=== PATIENT | female | born 1965 | race Caucasian/White ===

== ENCOUNTER → 2017-04-20 | Outpatient (CLI) | payer OTHER ==
[~2017-04-20] MED LIST: ALBUTEROL0.09 MG/A2 INH; CLARITIN10 MG PO; CLINDAMYCIN150 MG PO; FLONASE ALLERG9.9 ML NAS; IBUPROFEN600 MG PO; MEDROL DOSEPAK4 MG PO; MOTRIN800 MG PO; PREDNICOT10 MG PO; PREDNISONE10 MG PO; PROZAC40 MG PO; ROBITUSSIN AC 110 ML PO; VENTOLIN H0.09 MG/AC INH; VIBRAMYCIN100 MG PO
[2017-04-21 08:12] LABS: RHEUMATOID ARTHRITIS FACTOR <10.0 IU/mL (0.0-13.9)
== END | disposition home or self-care (01) ==
LOC: LAB 07:48
PROVIDERS: Internal Medicine
DX: Z13.21 Encounter for screening for nutritional disorder (principal); Z13.220 Encounter for screening for lipoid disorders; Z13.1 Encounter for screening for diabetes mellitus; F33.0 Major depressive disorder, recurrent, mild; R10.9 Unspecified abdominal pain; M85.80 Other specified disorders of bone density and structure, unspecified site; K76.0 Fatty (change of) liver, not elsewhere classified; R21 Rash and other nonspecific skin eruption; R73.9 Hyperglycemia, unspecified

== ENCOUNTER 2017-04-30 12:14 | Emergency (ER) | payer OTHER ==
[~2017-04-30] VITALS: Ht 170.1 cm; Wt 72.6 kg
[2017-04-30 13:01] LABS: BASO % 0.3 % (0.0-1.0); EOS # 0.1 10*3/uL (0.0-0.4); EOS % 0.4 % (1.0-4.0); HEMOGLOBIN 14.2 g/dl (12.0-16.0); IG # 0.1 10*3/uL (0.0-0.1); LYMPH # 1.1 10*3/uL (1.3-4.4); MEAN CELL VOLUME 94.7 fl (81.0-99.0); MEAN CORPUSCULAR HGB 31.3 pg (27.0-31.0); MEAN PLATELET VOLUME 9.7 fl (9.6-12.3); MONO # 0.7 10*3/uL (0.1-1.0); MONO % 5.8 % (3.0-9.0); NEUT # 10.4 10*3/uL (2.3-7.9); PLATELET COUNT AUTOMATED 273 10*3/uL (130-400); RED BLOOD COUNT 4.54 10*6/uL (4.10-5.10); RED CELL DISTRI WIDTH 13.3 % (0-14.5); WHITE BLOOD COUNT 12.4 10*3/uL (4.8-10.8)
[2017-04-30 13:14] LABS: ALBUMIN 3.5 gm/dl (3.1-4.5); ALKALINE PHOSPHATASE 84 U/L (45-117); BILIRUBIN, TOTAL 0.7 mg/dl (0.2-1.0); BUN 5 mg/dl (7-24); C-REACTIVE PROTEIN 2.07 MG/DL (0-0.3); CARBON DIOXIDE 28 mmol/L (21-32); CHLORIDE 105 mmol/L (98-107); CPK 38 U/L (26-192); EST GLOM FILT AFRICAN AMERICAN > 60 ml/min; GLUCOSE 100 mg/dL (65-99); POTASSIUM 4.1 mmol/L (3.5-5.1); SGOT/AST 22 IU/L (3-35); SGPT/ALT 56 U/L (12-78); SODIUM 141 mmol/L (136-145); TOTAL PROTEIN 6.8 gm/dL (6.4-8.2)
[2017-04-30 13:15] LABS: CKMB < 0.5 ng/ml (0.5-3.6); TROPONIN I < 0.015 ng/ml (<0.045)
[2017-04-30 13:19] LABS: PROTHROMBIN TIME 10.7 SECONDS (9.0-12.4)
[2017-04-30 14:30] LABS: BILIRUBIN NEGATIVE (NEGATIVE); BLOOD TRACE-INTACT (NEGATIVE); CLARITY CLEAR (CLEAR); COLOR YELLOW (YELLOW); GLUCOSE NEGATIVE (NEGATIVE); KETONE NEGATIVE (NEGATIVE); LEUKO ESTERASE NEGATIVE (NEGATIVE); NITRITE NEGATIVE (NEGATIVE); PROTEIN NEGATIVE (NEGATIVE); UROBILINOGEN 0.2 E.U./dl (0.2-1.0)
[2017-04-30 14:38] LABS: URINE REFLEX COMMENT NO (NO); WBC 0-2 wbc/hpf (0-5)
[2017-04-30 14:39] LABS: RBC 0-2 rbc/hpf (0-2)
[2017-04-30] MEDS ORDERED: ZOFRAN ODT4 MG SL (15:07)
[2017-04-30] MEDS ORDERED: PROVENTIL0.09 MG/A1 INH (15:07)
[2017-04-30] MEDS ORDERED: PREDNISONE50 MG PO (15:07)
== END 2017-04-30 15:19 | disposition home or self-care (01) ==
LOC: ED 12:14
PROVIDERS: Emergency Medicine
DX: K52.9 Noninfective gastroenteritis and colitis, unspecified (principal); J06.9 Acute upper respiratory infection, unspecified; F17.200 Nicotine dependence, unspecified, uncomplicated; Z88.8 Allergy status to other drugs, medicaments and biological substances; Z91.040 Latex allergy status; Z79.899 Other long term (current) drug therapy

== ENCOUNTER 2017-06-29 10:18 | Emergency (ER) | payer OTHER ==
[~2017-06-29] VITALS: Ht 170.1 cm; Wt 68.9 kg
[~2017-06-29 10:18] MED LIST changes: +PREDNISONE50 MG PO; +PROVENTIL0.09 MG/A1 INH; +ZOFRAN ODT4 MG SL
[2017-06-29] MEDS ORDERED: METFORMIN500 MG PO (11:19)
[2017-06-29] MEDS ORDERED: NAPROSYN500 MG PO (12:35)
== END 2017-06-29 12:37 | disposition home or self-care (01) ==
LOC: ED 10:18
DX: M25.562 Pain in left knee (principal); R60.0 Localized edema; F17.200 Nicotine dependence, unspecified, uncomplicated; J45.909 Unspecified asthma, uncomplicated; Z79.899 Other long term (current) drug therapy; Z91.040 Latex allergy status; Z88.8 Allergy status to other drugs, medicaments and biological substances

== ENCOUNTER → 2017-08-26 | Outpatient (CLI) | payer OTHER ==
[~2017-08-26] MED LIST changes: +METFORMIN500 MG PO; +NAPROSYN500 MG PO
== END | disposition home or self-care (01) ==
LOC: MRI 12:52
DX: S83.232D Complex tear of medial meniscus, current injury, left knee, subsequent encounter (principal); M71.22 Synovial cyst of popliteal space [Baker], left knee; M25.862 Other specified joint disorders, left knee; X58.XXXD Exposure to other specified factors, subsequent encounter

== ENCOUNTER 2018-01-11 10:12 | Emergency (ER) | payer OTHER ==
[~2018-01-11] VITALS: Wt 72.6 kg
[2018-01-11] MEDS ORDERED: PREDNISONE10 MG PO (10:36)
[2018-01-11] MEDS ORDERED: CLARITIN10 MG PO (10:36)
[2018-01-11] MEDS ORDERED: ROBITUSSIN DM 105 ML PO (10:36)
[2018-01-11] MEDS ORDERED: FLONASE ALLERG9.9 ML NAS (10:36)
[2018-01-11] MEDS ORDERED: PROAIR HFA8.5 GM INH (10:39)
== END 2018-01-11 11:09 | disposition home or self-care (01) ==
LOC: ED 10:12
DX: J20.9 Acute bronchitis, unspecified (principal); F17.200 Nicotine dependence, unspecified, uncomplicated; Z79.899 Other long term (current) drug therapy; Z91.040 Latex allergy status; Z88.8 Allergy status to other drugs, medicaments and biological substances

== ENCOUNTER → 2018-06-03 | Outpatient (CLI) | payer OTHER ==
[~2018-06-03] MED LIST changes: +AUGMENTIN 500500 M1 PO; +BUSPAR5 MG PO; +LEVAQUIN750 M1 PO; +MIRTAZAPINE7.5 MG PO; +PROAIR HFA8.5 GM INH; +ROBITUSSIN DM 105 ML PO; +TAMIFLU 75MG CA75 MG PO; +WELLBUTRIN SR200 MG PO; +ZOFRAN4 MG PO
== END | disposition home or self-care (01) ==
LOC: RAD 10:35
DX: M25.441 Effusion, right hand (principal); R06.02 Shortness of breath; F17.200 Nicotine dependence, unspecified, uncomplicated

== ENCOUNTER 2018-09-02 16:20 | Inpatient (IN) | payer OTHER ==
[~2018-09-02] VITALS: Ht 170.1 cm; Wt 74.6 kg
--- NOTE | ~2018-09-02 | PR ---
[place], [place] PROGRESS NOTE NAME: NICOLÁS GUTIÉRREZ UNIT #: [id number] ROOM: 517 DOCTOR: NUSRAT THORNE MD BIRTHDATE: [birth year] DOS: 09/05/2018 SUBJECTIVE: The patient complaining of acute gouty arthritis starting in her toe just this morning. Otherwise, her lower extremity pains and back pains are much better. OBJECTIVE: VITAL SIGNS: Blood pressure 116/63, heart rate 88 beats per minute, breathing 18 times per minute, temperature 98.4 degrees Fahrenheit. GENERAL APPEARANCE: The patient is alert and oriented x 3, in no visible distress. Has generalized weakness. HEENT AND NECK: Exam within normal limits. CARDIOVASCULAR SYSTEM: Heart rate is regular in rate and rhythm. S1 and S2 normally audible. LUNGS: Clear to auscultation. ABDOMEN: Soft, nontender. No obvious organomegaly. Bowel sounds are present. EXTREMITIES: Redness and swelling in the great toe, at the base of the right great toe. IMPRESSION: The patient has acute DICTATION ENDS HERE NUSRAT THORNE MD CM:PNTRANS [id number] NUSRAT THORNE MD 09/05/181913 interface
--- NOTE | ~2018-09-02 | WRIGHTHP ---
[place], [place] PATIENT HISTORY AND PHYSICAL EXAM NAME: NICOLÁS GUTIÉRREZ [facility] #: [id number] UNIT #: [id number] ROOM: [facility] DOCTOR: ROLANDO WEST MD BIRTHDATE: [birth year] DOS: HISTORY OF PRESENT ILLNESS: The patient is 52 years old. The patient is very well known to us, comes in with complaints of cough and shortness of breath. The patient states that on Thursday she woke up with sore throat and it continued to get worse with Thursday and Thursday developing some cough. By Thursday, she was starting a short of breath, so finally she decided to come to the Emergency Room on . She did have a low-grade fever. She does not have any abdominal pain, nausea, emesis, but started having some diarrhea this morning. PAST MEDICAL HISTORY: Significant for: 1. Moderate cigarette smoker. 2. Major depression, moderate. 3. Generalized anxiety disorder. MEDICATIONS: Medications that she is currently on are bupropion 150 twice a day, BuSpar 5 b.i.d., Remeron 7.5 at bedtime. SOCIAL HISTORY: Smokes about less than a half a pack of cigarettes a day since the age of 16. Denies using any alcohol. PHYSICAL EXAMINATION: GENERAL: She is awake and alert and oriented. VITAL SIGNS: Graphic trend shows a pressure of 99/58, pulse of 80, respirations 20, temperature 98.4. LUNGS: Diminished breath sounds. A few scattered rales heard at the bases. HEART: Regular. ABDOMEN: Obese, soft, nontender. EXTREMITIES: Without any edema. IMAGING: The patient tested for flu positive B. Chest x-ray showed bilateral pneumonia. LABORATORY DATA: WBC count is 8.8, hemoglobin 13.4, hematocrit 40.4. Lactic acid 0.9. Comprehensive glucose 133, BUN 7, creatinine 0.77, sodium 137, potassium 3.4. ASSESSMENT AND PLAN: This is a 52-year-old patient who presents with cough, shortness of breath. The patient has: 1. Flu positive, will be placed on Tamiflu. 2. Bilateral pneumonia. CT of the chest will be ordered to further determine the extent of infection. The patient is placed on IV antibiotics, breathing treatments. Sputum cultures will be sent for Legionella and mycoplasma and sputum cultures also ordered. 3. Chronic obstructive pulmonary disease with moderate cigarette smoker. Does not seem to have an acute exacerbation, so not necessary to give her any steroids right now. Antibiotics to be continued. 4. Diarrhea. Check with [facility]. diff titers. [place], [place] PATIENT HISTORY AND PHYSICAL EXAM NAME: NICOLÁS GUTIÉRREZ UNIT #: [id number] ROOM: [facility] DOCTOR: ROLANDO WEST MD BIRTHDATE: [birth year] ROLANDO WEST MD CM:HISPHYS:PATIENT HISTORY AND PHYSICAL EXAMINATION 3 0 ROLANDO WEST MD 09/03/18920 interface
--- NOTE | ~2018-09-02 | PR ---
[place], [place] PROGRESS NOTE NAME: NICOLÁS GUTIÉRREZ UNIT #: [id number] ROOM: 517 DOCTOR: NUSRAT THORNE MD BIRTHDATE: [birth year] DOS: SUBJECTIVE: The patient says she is starting to feel better and breathe better with treatment. OBJECTIVE: VITAL SIGNS: Blood pressure 110/67, heart rate 85 beats per minute, breathing 18 times per minute, temperature 99 degrees Fahrenheit. GENERAL APPEARANCE: The patient is alert and oriented x 3, in no visible distress. HEENT AND NECK: Exam within normal limits. CARDIOVASCULAR SYSTEM: Heart rate is regular in rate and rhythm. S1 and S2 normally audible. LUNGS: Clear to auscultation. ABDOMEN: Soft, nontender. No obvious organomegaly. Bowel sounds are present. EXTREMITIES: Without significant cyanosis or edema. IMPRESSION AND PLAN: 1. Patient positive for influenza B, being treated with Tamiflu. 2. Bilateral pneumonia. Sputum cultures have been sent for legionella and mycoplasma. Sputum cultures are pending. CT of the chest showing patchy consolidation in the right upper lobe and right middle lobe, compatible with pneumonia. I will consult Dr. Corona to follow. 3. The patient had diarrhea, C. diff toxin negative so far. 4. Acute exacerbation of chronic obstructive pulmonary disease with nicotine smoke dependence, treated with bronchodilators. 5. Generalized anxiety disorder, treated with BuSpar and bupropion. 6. Major depression, recurrent, mild; treated with bupropion. The patient also takes Remeron. NUSRAT THORNE MD CM:PNTRANS [id number] NUSRAT THORNE MD 09/05/18 0458 interface
--- NOTE | ~2018-09-02 | PR ---
[place], [place] PROGRESS NOTE NAME: NICOLÁS GUTIÉRREZ UNIT #: [id number] ROOM: 517 DOCTOR: ROLANDO WEST MD BIRTHDATE: [birth year] DOS: SUBJECTIVE: The patient is emotional about some family situation that has arose. The patient is not having any complaints. She is feeling much better. OBJECTIVE: VITAL SIGNS: Blood pressure is 107/57, pulse of 70, respirations 20, temperature 98.0. LUNGS: Clear. HEART: Regular. ABDOMEN: Obese, soft, nontender. EXTREMITIES: Without any edema. ASSESSMENT AND PLAN: Pneumonia after influenza B infection. Clinically, the patient is much better. Chest x-ray is lagging behind. Consultation with Dr. Corona was obtained. I did speak to him. Chest x-ray and CAT scans reviewed. I believe the patient is stable and he has agreed that the patient can be discharged home, so plan to discharge her home on p.o. antibiotics and Tamiflu. ROLANDO WEST MD CM:PNTRANS 0833 140 ROLANDO WEST MD 09/07/18 140 interface
--- NOTE | ~2018-09-02 | PR ---
[place], [place] PROGRESS NOTE NAME: NICOLÁS GUTIÉRREZ UNIT #: [id number] ROOM: 517 DOCTOR: ROLANDO WEST MD BIRTHDATE: [birth year] DOS: 09/06/2018 SUBJECTIVE: The patient is doing much better. She still has a very moist-sounding cough and is spitting up a lot of greenish sputum. OBJECTIVE: VITAL SIGNS: Graphic trend shows a pressure of 118/60, pulse of 82, respirations 16, temperature 98.2. LUNGS: Diminished breath sounds, few rales heard at the right upper lobe area. HEART: Regular. ABDOMEN: Obese, soft. EXTREMITIES: Without any edema. ASSESSMENT AND PLAN: 1. Influenza B positive. The patient is on Tamiflu. 2. Right upper lobe, right middle lobe pneumonia, on IV antibiotics. Blood cultures and sputum cultures so far have come back showing no growth and moderate yeast. Clostridium difficile titers have been negative. 3. Moderate cigarette smoker with chronic obstructive pulmonary disease. Continue breathing treatments. We will do a chest x-ray today to see whether the pneumonia is clearing and then we will decide on discharge planning. ROLANDO WEST MD CM:PNTRANS [id number] ROLANDO WEST MD 09/06/18 1719 interface
--- NOTE | ~2018-09-02 | DS ---
[place], [place] DISCHARGE SUMMARY NAME: NICOLÁS GUTIÉRREZ UNIT #: [id number] ROOM: 517 DOCTOR: ROLANDO WEST MD BIRTHDATE: [birth year] DOS: 09/07/2018 The patient was admitted to the hospital on 09/02/2018 and discharged on 09/07/2018. DIAGNOSES: 1. Right middle and upper lobe pneumonia. 2. Influenza B infection. 3. Moderate cigarette smoker. 4. Chronic obstructive pulmonary disease. 5. Major depression, moderate. 6. Generalized anxiety disorder. MEDICATIONS: Bupropion 150 b.i.d., BuSpar 5 b.i.d., Remeron 7.5 mg at bedtime, Levaquin 750 daily for 7 days and Tamiflu 75 mg twice daily for another 3 more days. HOSPITAL COURSE: The patient is very well known to us, comes in with complaints of cough, shortness of breath and a low grade fever initially before she came. After she arrived, her fevers have resolved and her white cell count has remained normal with a normal lactic acid level. Chest x-ray showed pneumonia and influenza B was positive. She had a CT of the chest, which was done, which showed consolidation of the right middle and lower part of the right lower lobe. Multiple antibiotics were started and the patient has definitely improved for the last few days, diarrhea was noted, so Lomotil was given. Clostridium difficile titers have been negative. Cough and shortness of breath have subsided. She still has a slightly productive cough. Dr. Corona was consulted. The patient is clinically improved. Dr. Corona feels the patient can be discharged home today and follow up as an outpatient. Repeat chest x-ray will be ordered in a few days. Sputum culture, C. diff titers, Legionella, mycoplasma titers have all come back negative. [place], [place] DISCHARGE SUMMARY NAME: NICOLÁS GUTIÉRREZ UNIT #: [id number] ROOM: 517 DOCTOR: ROLANDO WEST MD BIRTHDATE: [birth year] ROLANDO WEST MD CM:DISCHARG [id number] ROLANDO WEST MD 09/07/18 1041 interface
--- NOTE | ~2018-09-02 | CON ---
[place], [place] REPORT OF CONSULTATION NAME: NICOLÁS GUTIÉRREZ [facility] #: [id number] UNIT #: [id number] ROOM: 517 DOCTOR: CARLOS QUINONES MDPANKAJ BIRTHDATE: [birth year] DOS: 09/07/2018 PULMONARY CONSULTATION, EVALUATION, AND MANAGEMENT REASON FOR CONSULTATION: For assessment of current abnormal chest x-ray with pneumonia and other abnormal respiratory symptoms by Dr. Alix Tolliver. HISTORY OF PRESENT ILLNESS: This is a 52-year-old white female patient who has been noted acutely ill a few days at home. The patient started with symptoms of having sore throat, initially dryness of throat. Later on with the headache reported. She was also noted a fever, which got worse up to 101 degrees and started wheezing. She was noted some nasal congestion and blockage as well. Shortness breath were reported. The patient has been admitted to the hospital under the care of Dr. Alix Tolliver on 09/02/2018 as the patient was assessed in the Emergency Room. Influenza A and B, nasal washing antigen was done in the Emergency Room, noted positive influenza B infection. The patient denies any symptoms of fever or chills at the present time. Shortness of breath, cough, and headache are seem to be improving since hospitalization. The patient denies any symptoms of hemoptysis. Denies any ongoing acute chest pain. REVIEW OF SYSTEMS: CONSTITUTIONAL: Fatigue and tiredness reported without any symptoms of fever or chills. EYES: Denies any burning, redness, or tenderness. EARS, NOSE, THROAT SYMPTOMS: Denies sore throat, hoarseness, otalgia at the present time. The symptoms from admission has been resolved completely. CARDIOVASCULAR: Denies angina pain, edema, pain of the lower extremity. GASTROINTESTINAL: No dysphagia, nausea, vomiting, diarrhea, abnormal weight loss, hematemesis, or melena. SKIN: Denies abnormal lesions or rashes. GENITOURINARY: No dysuria, suprapubic pain, hematuria, or flank pain. SKIN: Denies abnormal lesions or rashes. CENTRAL NERVOUS SYSTEM: Denies any headache, diplopia, or syncopal episodes. The headache noted on admission was resolved completely. PAST MEDICAL HISTORY: Known with history of: 1. . 2. Chronic nicotine dependence. 3. History of major depression. 4. Anxiety disorder. SOCIAL HISTORY: The patient lives at home. She is and has 2 children. Smoking was noted about 3/4 pack of cigarettes per day actively from the age of [age] years old. There was no history of alcohol use or illicit drug use reported. FAMILY HISTORY: Noted as noncontributory. PAST SURGICAL HISTORY: None major surgery. HOME MEDICATIONS: Listed as use of BuSpar, Wellbutrin, and Remeron. [place], [place] REPORT OF CONSULTATION NAME: NICOLÁS GUTIÉRREZ UNIT #: [id number] ROOM: [facility] DOCTOR: CARLOS QUINONES MD,PANKAJ BIRTHDATE: [birth year] DRUG ALLERGY HISTORY: The patient was noted as ALLERGY TO PEPCID. PHYSICAL EXAMINATION: GENERAL: This is a 52-year-old white female patient, currently noted fully awake and alert without acute distress this morning of assessment. VITAL SIGNS: Height of 5 feet 7 inches, weight of 164 pounds, BMI 25.7. Normal temperature noted in the last 24 with T-max is noted on 09/05/2018 as 97.8 degrees Fahrenheit. Otherwise, the patient noted essentially afebrile. The respiratory rate range between 14-16. The heart rate 79-78, blood pressure 107/57. Pulse oxygen saturation recorded at rest on room air is 94%-96% saturation currently 100% at rest on room air. HEENT: Head was atraumatic. Eyes nonicterus. Akeq-ut-lhifpfle obesity. NECK: Supple. Moderate reduction of posterior pharyngeal space, high tongue base, and crowding of soft tissue structures. CHEST: Auscultation of chest was noted [id number] decreased breath sounds with expiratory wheezing, which are noted, this is mild. ABDOMEN: Noted soft, nontender. Bowel sounds present. EXTREMITIES: Without acute edema. MUSCULOSKELETAL: Without any acute deformities. VISIBLE SKIN: No lesions or rashes. CENTRAL NERVOUS SYSTEM: The patient's cranial nerves 2-12 intact. LABORATORY DATA: Reviewed Influenza B and nasal washing antigen on admission noted positive influenza B, nasal washing antigen. CBC on 09/02/2018 was noted as normal CBC. Lactic acid noted normal on 09/02/2018. CMP on admission, glucose 133, BUN and creatinine was normal. LFTs were normal. Potassium mildly decreased 3.4 on admission. CBC repeated on , essentially remains normal. BMP patient noted normal potassium which were repeated. The glucose was recorded as 160. Blood culture on admission 09/02/2018, reported no bacterial growth. Stool for C. diff toxin negative. Sputum culture noted moderate growth of yeast on 09/04/2018. The CBC that was done this morning reviewed as normal. WBC count and platelet count. The BMP this morning, normal BUN, creatinine and electrolytes noted completely normal. Review of the radiology data for the patient personally performed, the chest x-ray that was done on 09/02/2018 in the Emergency Room to be chest x-ray was noted with area of right middle lobe infiltration and atelectasis was noted. Remaining lungs were noted clear. CT scan of the chest, which was done without contrast on 09/03/2018 was reviewed, shows patchy area of consolidation of the patient's right upper lobe and in the lateral subsegment of the right middle lobe. There were no pleural effusions. There were no abnormal lymphadenopathy. Chest x-ray done this morning noted increased infiltration to some extent for this patient noted mainly in the right middle lobe. IMPRESSION: 1. The patient who has been currently noted with acute pneumonia, which could be bacterial in origin or virus as well as influenza infection. 2. The patient with acute exacerbation of chronic obstructive pulmonary disease, bronchial asthma would be considered with history of detention tobacco use. [place], [place] REPORT OF CONSULTATION NAME: NICOLÁS GUTIÉRREZ UNIT #: [id number] ROOM: [facility] DOCTOR: CARLOS QUINONES MD,[facility] BIRTHDATE: [birth year] 3. Mild obesity as well. 4. Possibility of atelectasis, partially progress right middle lobe be considered at this time or radiologic ____ for resolution of acute pneumonia with appropriate treatment. 5. Chronic nicotine dependence. PLAN OF MANAGEMENT: The patient could be discharged home on oral Levaquin 500 mg daily for the next 5 days. Bronchodilators p.r.n. use. The oxygen supplementation for the patient has not required. Counseling about tobacco cessation done in detail. Assessment and management was also discussed with Dr. Alix Tolliver in detail about the discharge plan and further future followup. Repeat chest x-ray will be recommended about a week after completion of the antibiotic. The patient document complete resolution of current pulmonary abnormalities. She can certainly contact my office, if any assistance needed for further assessment of pulmonary disease. The pneumonia would be considered and possibility of viral pneumonia for this patient related to influenza infection with superimposed bacterial infection such as strep or staph infection, gram-positive pneumonia. Assessment and management of the patient even including discharge planning has been discussed in detail with Dr. Alix Tolliver personally on the floor. Thanks for allowing me to participate in the care of this patient. PANKAJ GONZALEZ MD CM:CONSTR:REPORT OF CONSULTATION 1149 09/08/18 0038 interface
--- NOTE | ~2018-09-02 | PR ---
[place], [place] PROGRESS NOTE NAME: NICOLÁS GUTIÉRREZ UNIT #: [id number] ROOM: 517 DOCTOR: NUSRAT THORNE MD BIRTHDATE: [birth year] DOS: 09/05/2018 SUBJECTIVE: The patient is breathing much better today. OBJECTIVE: VITAL SIGNS: Blood pressure 116/63, heart rate of 88 beats per minute, breathing normally, afebrile. IMPRESSION: 1. The patient with influenza B positive, being treated with Tamiflu. 2. Bilateral pneumonic infiltrates, being treated with antibiotics. The patient's sputum sent for legionella and mycoplasma. CT of the chest showing patchy consolidation of the right upper and middle lobe. 3. The patient with Clostridium difficile toxin negative diarrhea treated with Lomotil. 4. Acute exacerbation of chronic obstructive pulmonary disease with nicotine smoke dependence, treated with bronchodilators. 5. Generalized anxiety disorder, treated with BuSpar and bupropion. 6. Major depression, recurrent, mild, treated with bupropion and Remeron. NUSRAT THORNE MD CM:PNTRANS 30 NUSRAT THORNE MD 09/05/181930 interface
[~2018-09-02 16:20] MED LIST changes: -BUSPAR5 MG PO; -LEVAQUIN750 M1 PO; -MIRTAZAPINE7.5 MG PO; -TAMIFLU 75MG CA75 MG PO; -WELLBUTRIN SR200 MG PO
[2018-09-02 16:21] VITALS: BP 109/68
[2018-09-02] MEDS ORDERED: WELLBUTRIN SR200 MG PO (17:02)
[2018-09-02] MEDS ORDERED: MIRTAZAPINE7.5 MG PO (17:03)
[2018-09-02 18:48] LABS: BASO % 0.3 % (0.0-1.0); EOS % 0.3 % (1.0-4.0); HEMATOCRIT 40.4 % (37.0-47.0); HEMOGLOBIN 13.4 g/dl (12.0-16.0); LYMPH # 1.4 10*3/uL (1.3-4.4); LYMPH % 15.5 % (27.0-41.0); MEAN CELL VOLUME 94.4 fl (81.0-99.0); MEAN CORPUSCULAR HGB 31.3 pg (27.0-31.0); MEAN CORPUSCULAR HGB CONC 33.2 g/dl (33.0-37.0); MEAN PLATELET VOLUME 9.3 fl (9.6-12.3); MONO # 0.7 10*3/uL (0.1-1.0); NEUT # 6.6 10*3/uL (2.3-7.9); NEUT % 75.4 % (47.0-73.0); PLATELET COUNT AUTOMATED 247 10*3/uL (130-400); RED BLOOD COUNT 4.28 10*6/uL (4.10-5.10); RED CELL DISTRI WIDTH 12.5 % (0-14.5); WHITE BLOOD COUNT 8.8 10*3/uL (4.8-10.8)
[2018-09-02 18:57] VITALS: BP 131/73
[2018-09-02 19:03] LABS: ALBUMIN 3.7 gm/dl (3.1-4.5); ALKALINE PHOSPHATASE 101 U/L (45-117); BUN 7 mg/dl (7-24); CHLORIDE 103 mmol/L (98-107); CREATININE 0.77 mg/dL (0.55-1.02); POTASSIUM 3.4 mmol/L (3.5-5.1); SGOT/AST 16 IU/L (3-35); SGPT/ALT 32 U/L (12-78); SODIUM 137 mmol/L (136-145); TOTAL PROTEIN 7.8 gm/dL (6.4-8.2)
[2018-09-02 21:00] VITALS: BP 118/69
[2018-09-02 21:15] VITALS: BP 118/69
[2018-09-02] MEDS ORDERED: BUSPAR5 MG PO (21:34)
[2018-09-03] VITALS: BP 99/58
[2018-09-03 06:26] LABS: BASO % 0.1 % (0.0-1.0); HEMOGLOBIN 12.6 g/dl (12.0-16.0); LYMPH # 0.7 10*3/uL (1.3-4.4); LYMPH % 9.7 % (27.0-41.0); MEAN CELL VOLUME 94.5 fl (81.0-99.0); MEAN CORPUSCULAR HGB 31.3 pg (27.0-31.0); MEAN CORPUSCULAR HGB CONC 33.2 g/dl (33.0-37.0); MEAN PLATELET VOLUME 9.6 fl (9.6-12.3); MONO # 0.1 10*3/uL (0.1-1.0); MONO % 1.7 % (3.0-9.0); NEUT # 6.2 10*3/uL (2.3-7.9); NEUT % 88.2 % (47.0-73.0); PLATELET COUNT AUTOMATED 237 10*3/uL (130-400); RED BLOOD COUNT 4.02 10*6/uL (4.10-5.10); RED CELL DISTRI WIDTH 12.3 % (0-14.5)
[2018-09-03 06:54] LABS: BUN 6 mg/dl (7-24); CHLORIDE 106 mmol/L (98-107); CREATININE 0.61 mg/dL (0.55-1.02); POTASSIUM 3.7 mmol/L (3.5-5.1); SODIUM 139 mmol/L (136-145)
[2018-09-03 08:00] VITALS: BP 120/82
[2018-09-03 12:00] VITALS: BP 143/78
[2018-09-03 16:00] VITALS: BP 112/72
[2018-09-03 20:00] VITALS: BP 111/66
[2018-09-04] VITALS: BP 110/60
[2018-09-04 06:54] LABS: BASO % 0.2 % (0.0-1.0); EOS % 0.2 % (1.0-4.0); HEMATOCRIT 35.1 % (37.0-47.0); HEMOGLOBIN 11.4 g/dl (12.0-16.0); LYMPH # 1.8 10*3/uL (1.3-4.4); LYMPH % 22.3 % (27.0-41.0); MEAN CELL VOLUME 96.7 fl (81.0-99.0); MEAN CORPUSCULAR HGB 31.4 pg (27.0-31.0); MEAN CORPUSCULAR HGB CONC 32.5 g/dl (33.0-37.0); MEAN PLATELET VOLUME 9.3 fl (9.6-12.3); MONO # 0.6 10*3/uL (0.1-1.0); MONO % 7.6 % (3.0-9.0); NEUT # 5.6 10*3/uL (2.3-7.9); NEUT % 69.3 % (47.0-73.0); PLATELET COUNT AUTOMATED 227 10*3/uL (130-400); RED BLOOD COUNT 3.63 10*6/uL (4.10-5.10); RED CELL DISTRI WIDTH 12.6 % (0-14.5)
[2018-09-04 06:57] LABS: BUN 10 mg/dl (7-24); CHLORIDE 114 mmol/L (98-107); CREATININE 0.78 mg/dL (0.55-1.02); POTASSIUM 3.9 mmol/L (3.5-5.1); SODIUM 147 mmol/L (136-145)
[2018-09-04 08:00] VITALS: BP 106/63
[2018-09-04 12:00] VITALS: BP 106/63; BP 118/70
[2018-09-04 16:00] VITALS: BP 110/67
[2018-09-04 20:00] VITALS: BP 115/66
[2018-09-05] VITALS: BP 110/50
[2018-09-05 08:00] VITALS: BP 126/73
[2018-09-05 12:00] VITALS: BP 116/63
[2018-09-05 16:00] VITALS: BP 106/61
[2018-09-05 20:00] VITALS: BP 134/82
[2018-09-06] VITALS: BP 111/60
[2018-09-06 08:00] VITALS: BP 118/60
[2018-09-06 12:00] VITALS: BP 102/68
[2018-09-06 16:00] VITALS: BP 110/65
[2018-09-06 20:00] VITALS: BP 115/73
[2018-09-07] VITALS: BP 108/59; BP 115/73
[2018-09-07 07:05] LABS: BASO % 0.4 % (0.0-1.0); EOS # 0.2 10*3/uL (0.0-0.4); EOS % 2.1 % (1.0-4.0); HEMATOCRIT 37.3 % (37.0-47.0); HEMOGLOBIN 11.9 g/dl (12.0-16.0); LYMPH # 1.5 10*3/uL (1.3-4.4); LYMPH % 20.3 % (27.0-41.0); MEAN CELL VOLUME 95.6 fl (81.0-99.0); MEAN CORPUSCULAR HGB 30.5 pg (27.0-31.0); MEAN CORPUSCULAR HGB CONC 31.9 g/dl (33.0-37.0); MEAN PLATELET VOLUME 8.9 fl (9.6-12.3); MONO # 0.8 10*3/uL (0.1-1.0); MONO % 10.5 % (3.0-9.0); NEUT % 66.2 % (47.0-73.0); PLATELET COUNT AUTOMATED 311 10*3/uL (130-400); RED CELL DISTRI WIDTH 12.1 % (0-14.5); WHITE BLOOD COUNT 7.5 10*3/uL (4.8-10.8)
[2018-09-07 07:21] LABS: BUN 6 mg/dl (7-24); CHLORIDE 106 mmol/L (98-107); CREATININE 0.65 mg/dL (0.55-1.02); POTASSIUM 3.9 mmol/L (3.5-5.1); SODIUM 142 mmol/L (136-145)
[2018-09-07 08:00] VITALS: BP 107/57
[2018-09-07] MEDS ORDERED: LEVAQUIN750 M1 PO (08:31)
[2018-09-07] MEDS ORDERED: TAMIFLU 75MG CA75 MG PO (08:31)
== END 2018-09-07 11:05 | disposition home or self-care (01) | DRG 871 ==
LOC: ED 16:20 → 5E 19:45 → EDHOLD 19:45 → 5E 20:13
PROVIDERS: Internal Medicine; Nurse Practitioner Family
DX: A41.9 Sepsis, unspecified organism (principal); J10.00 Influenza due to other identified influenza virus with unspecified type of pneumonia; J44.1 Chronic obstructive pulmonary disease with (acute) exacerbation; J44.0 Chronic obstructive pulmonary disease with (acute) lower respiratory infection; F33.1 Major depressive disorder, recurrent, moderate; F17.210 Nicotine dependence, cigarettes, uncomplicated; F41.1 Generalized anxiety disorder; E66.9 Obesity, unspecified; R19.7 Diarrhea, unspecified; E11.9 Type 2 diabetes mellitus without complications; Z88.8 Allergy status to other drugs, medicaments and biological substances; Z91.040 Latex allergy status; Z82.49 Family history of ischemic heart disease and other diseases of the circulatory system; Z71.6 Tobacco abuse counseling; Z68.25 Body mass index [BMI] 25.0-25.9, adult

== ENCOUNTER → 2018-12-08 | Outpatient (CLI) | payer OTHER ==
[~2018-12-08] MED LIST changes: +BUSPAR5 MG PO; +LEVAQUIN750 M1 PO; +MIRTAZAPINE7.5 MG PO; +TAMIFLU 75MG CA75 MG PO; +WELLBUTRIN SR200 MG PO
== END | disposition home or self-care (01) ==
LOC: MAMMO 09:48
DX: Z12.31 Encounter for screening mammogram for malignant neoplasm of breast (principal); Z13.820 Encounter for screening for osteoporosis; N95.9 Unspecified menopausal and perimenopausal disorder; M19.90 Unspecified osteoarthritis, unspecified site; E55.9 Vitamin D deficiency, unspecified

== ENCOUNTER → 2018-12-28 | Outpatient (CLI) | payer OTHER | END | disposition home or self-care (01) | LOC: MAMMO 12:59 | DX: R92.8 Other abnormal and inconclusive findings on diagnostic imaging of breast (principal) ==

== ENCOUNTER → 2019-06-07 | Outpatient (CLI) | payer OTHER | END | disposition home or self-care (01) | LOC: US 12:30 | DX: I77.1 Stricture of artery (principal) ==

== ENCOUNTER 2019-08-25 15:37 | Emergency (ER) | payer OTHER ==
[~2019-08-25] VITALS: Ht 170.1 cm; Wt 72.6 kg
== END 2019-08-25 18:08 | disposition home or self-care (01) ==
LOC: ED 15:37
DX: R10.31 Right lower quadrant pain (principal); J45.909 Unspecified asthma, uncomplicated; E11.9 Type 2 diabetes mellitus without complications; Z88.8 Allergy status to other drugs, medicaments and biological substances; Z91.040 Latex allergy status; Z79.899 Other long term (current) drug therapy; Z79.2 Long term (current) use of antibiotics; Z90.49 Acquired absence of other specified parts of digestive tract

== ENCOUNTER 2019-12-29 09:45 | Emergency (ER) | payer OTHER ==
[~2019-12-29] VITALS: Ht 170.1 cm; Wt 72.6 kg
[2019-12-29 10:28] LABS: BASO # 0.1 10*3/uL (0.0-0.1); BASO % 1.1 % (0.0-1.0); EOS # 0.1 10*3/uL (0.0-0.4); EOS % 2.5 % (1.0-4.0); HEMOGLOBIN 14.3 g/dl (12.0-16.0); LYMPH # 1.5 10*3/uL (1.3-4.4); LYMPH % 28.5 % (27.0-41.0); MEAN CELL VOLUME 98.2 fl (81.0-99.0); MEAN CORPUSCULAR HGB 31.9 pg (27.0-31.0); MEAN CORPUSCULAR HGB CONC 32.5 g/dl (33.0-37.0); MEAN PLATELET VOLUME 9.3 fl (9.6-12.3); MONO # 0.4 10*3/uL (0.1-1.0); MONO % 7.5 % (3.0-9.0); NEUT # 3.1 10*3/uL (2.3-7.9); NEUT % 60.2 % (47.0-73.0); PLATELET COUNT AUTOMATED 285 10*3/uL (130-400); RED BLOOD COUNT 4.48 10*6/uL (4.10-5.10); RED CELL DISTRI WIDTH 12.8 % (0-14.5); WHITE BLOOD COUNT 5.2 10*3/uL (4.8-10.8)
[2019-12-29 10:38] LABS: ACT PARTIAL THROMBO TIME 26.5 SECONDS (20.0-32.1)
[2019-12-29 10:43] LABS: ALBUMIN 3.6 gm/dl (3.1-4.5); ALKALINE PHOSPHATASE 91 U/L (45-117); BUN 8 mg/dl (7-24); CHLORIDE 108 mmol/L (98-107); CREATININE 0.77 mg/dL (0.55-1.02); LIPASE 269 U/L (73-393); POTASSIUM 4.4 mmol/L (3.5-5.1); SGOT/AST 30 IU/L (3-35); SGPT/ALT 37 U/L (12-78); SODIUM 139 mmol/L (136-145); TOTAL PROTEIN 7.3 gm/dL (6.4-8.2)
[2019-12-29 10:50] LABS: TROPONIN I < 0.015 ng/ml (<0.045)
== END 2019-12-29 12:46 | disposition home or self-care (01) ==
LOC: ED 09:45
PROVIDERS: Emergency Medicine
DX: B34.9 Viral infection, unspecified (principal); J44.9 Chronic obstructive pulmonary disease, unspecified; F17.200 Nicotine dependence, unspecified, uncomplicated; Z88.8 Allergy status to other drugs, medicaments and biological substances; Z91.040 Latex allergy status; Z79.899 Other long term (current) drug therapy

== ENCOUNTER → 2020-06-04 | Outpatient (CLI) | payer OTHER | END | disposition home or self-care (01) | LOC: MAMMO 05-21 09:30 | PROVIDERS: ATTEND Internal Medicine | DX: Z12.31 Encounter for screening mammogram for malignant neoplasm of breast (principal) ==

== ENCOUNTER → 2020-12-14 | Outpatient (CLI) | payer OTHER | END | disposition home or self-care (01) | LOC: COVID19 10:17 | PROVIDERS: ATTEND Nurse Practitioner Primary Care | DX: J01.40 Acute pansinusitis, unspecified (principal); Z20.822 Contact with and (suspected) exposure to COVID-19 ==

== ENCOUNTER → 2021-01-04 | Outpatient (CLI) | payer OTHER | END | disposition home or self-care (01) | LOC: RAD 15:26 | PROVIDERS: ATTEND Nurse Practitioner Primary Care | DX: J40 Bronchitis, not specified as acute or chronic (principal) ==

== ENCOUNTER → 2021-04-30 | Outpatient (CLI) | payer OTHER | END | disposition home or self-care (01) | LOC: RAD 08:56 | PROVIDERS: ATTEND Nurse Practitioner Women's Health | DX: M85.852 Other specified disorders of bone density and structure, left thigh (principal); M85.851 Other specified disorders of bone density and structure, right thigh ==

== ENCOUNTER → 2021-08-12 | Outpatient (CLI) | payer OTHER | END | disposition home or self-care (01) | LOC: MAMMO 08:00 | PROVIDERS: ATTEND Nurse Practitioner Women's Health | DX: Z12.31 Encounter for screening mammogram for malignant neoplasm of breast (principal) ==

== ENCOUNTER → 2021-10-25 | Outpatient (CLI) | payer OTHER | END | disposition home or self-care (01) | LOC: COVID19 14:56 | PROVIDERS: ATTEND Internal Medicine | DX: U07.1 COVID-19 (principal) ==

== ENCOUNTER → 2021-11-01 | Outpatient (CLI) | payer OTHER | END | disposition home or self-care (01) | LOC: RAD 15:39 | PROVIDERS: ATTEND Nurse Practitioner Primary Care | DX: R06.02 Shortness of breath (principal) ==

== ENCOUNTER → 2022-07-22 | Outpatient (CLI) | payer OTHER ==
[2022-07-22 10:43] LABS: ALKALINE PHOSPHATASE 105 U/L (45-117); BUN 9 mg/dl (7-24); CHLORIDE 105 mmol/L (98-107); CHOLESTEROL 214 mg/dL (<200); CREATININE 0.68 mg/dL (0.55-1.02); LDL CHOLESTEROL 116 mg/dL (9-159); POTASSIUM 4.2 mmol/L (3.5-5.1); SGOT/AST 33 IU/L (3-35); SGPT/ALT 65 U/L (12-78); SODIUM 140 mmol/L (136-145); TOTAL PROTEIN 7.8 gm/dL (6.4-8.2); TRIGLYCERIDES 71 mg/dl (<150)
[2022-07-22 11:34] LABS: VITAMIN D, 25-HYDROXY 46.6 ng/mL (30-100)
== END | disposition home or self-care (01) ==
LOC: LAB 09:47
PROVIDERS: ATTEND Nurse Practitioner Family
DX: E11.9 Type 2 diabetes mellitus without complications (principal); E53.8 Deficiency of other specified B group vitamins; E55.9 Vitamin D deficiency, unspecified

== ENCOUNTER → 2023-05-13 | Outpatient (CLI) | payer OTHER ==
[2023-05-13 08:57] LABS: BASO % 0.6 % (0.0-1.0); EOS # 0.1 10*3/uL (0.0-0.4); EOS % 1.4 % (1.0-4.0); HEMATOCRIT 43.1 % (37.0-47.0); LYMPH # 1.3 10*3/uL (1.3-4.4); LYMPH % 26.4 % (27.0-41.0); MEAN CELL VOLUME 94.1 fl (81.0-99.0); MEAN CORPUSCULAR HGB 31.7 pg (27.0-31.0); MEAN CORPUSCULAR HGB CONC 33.6 g/dl (33.0-37.0); MEAN PLATELET VOLUME 9.6 fl (9.6-12.3); MONO # 0.4 10*3/uL (0.1-1.0); MONO % 8.4 % (3.0-9.0); NEUT # 3.1 10*3/uL (2.3-7.9); NEUT % 62.8 % (47.0-73.0); PLATELET COUNT AUTOMATED 288 10*3/uL (130-400); RED BLOOD COUNT 4.58 10*6/uL (4.10-5.10); RED CELL DISTRI WIDTH 12.7 % (0-14.5)
[2023-05-13 09:27] LABS: ALKALINE PHOSPHATASE 97 U/L (46-116); BUN 9 mg/dl (9-23); CHLORIDE 104 mmol/L (98-107); CHOLESTEROL 191 mg/dL (<200); LDL CHOLESTEROL 94 mg/dL (9-159); POTASSIUM 3.9 mmol/L (3.4-5.1); SGPT/ALT 37 U/L (10-49); TOTAL PROTEIN 6.9 gm/dL (6.0-8.0); TRIGLYCERIDES 105 mg/dl (<150)
[2023-05-13 09:28] LABS: VITAMIN D, 25-HYDROXY 57.3 ng/mL (30-100)
== END | disposition home or self-care (01) ==
LOC: LAB 08:23
PROVIDERS: ATTEND Nurse Practitioner Primary Care
DX: E55.9 Vitamin D deficiency, unspecified (principal); R53.83 Other fatigue; E11.9 Type 2 diabetes mellitus without complications

== ENCOUNTER → 2023-06-17 | Outpatient (CLI) | payer OTHER | END | disposition home or self-care (01) | LOC: MAMMO 10:00 | PROVIDERS: ATTEND Nurse Practitioner Primary Care | DX: Z12.31 Encounter for screening mammogram for malignant neoplasm of breast (principal) ==

== ENCOUNTER → 2023-10-01 | Outpatient (CLI) | payer MEDICARE | END | disposition home or self-care (01) | LOC: LAB 08:36 | PROVIDERS: ATTEND Nurse Practitioner Family | DX: J44.9 Chronic obstructive pulmonary disease, unspecified (principal); J18.9 Pneumonia, unspecified organism; R91.8 Other nonspecific abnormal finding of lung field; I70.0 Atherosclerosis of aorta; M47.814 Spondylosis without myelopathy or radiculopathy, thoracic region ==

== ENCOUNTER → 2023-10-30 | Outpatient (CLI) | payer MEDICARE ==
[2023-10-30 10:02] LABS: BASO % 0.6 % (0.0-1.0); EOS # 0.1 10*3/uL (0.0-0.4); EOS % 1.4 % (1.0-4.0); HEMATOCRIT 46.1 % (37.0-47.0); LYMPH # 1.6 10*3/uL (1.3-4.4); LYMPH % 22.4 % (27.0-41.0); MEAN CELL VOLUME 97.1 fl (81.0-99.0); MEAN CORPUSCULAR HGB 31.4 pg (27.0-31.0); MEAN CORPUSCULAR HGB CONC 32.3 g/dl (33.0-37.0); MEAN PLATELET VOLUME 9.5 fl (9.6-12.3); MONO # 0.6 10*3/uL (0.1-1.0); NEUT # 4.8 10*3/uL (2.3-7.9); NEUT % 67.3 % (47.0-73.0); PLATELET COUNT AUTOMATED 308 10*3/uL (130-400); RED BLOOD COUNT 4.75 10*6/uL (4.10-5.10); RED CELL DISTRI WIDTH 12.5 % (0-14.5); WHITE BLOOD COUNT 7.1 10*3/uL (4.8-10.8)
[2023-10-30 10:28] LABS: ALKALINE PHOSPHATASE 97 U/L (46-116); BUN 8 mg/dl (9-23); CHLORIDE 105 mmol/L (98-107); CHOLESTEROL 221 mg/dL (<200); LDL CHOLESTEROL 125 mg/dL (9-159); POTASSIUM 3.7 mmol/L (3.4-5.1); SGPT/ALT 65 U/L (5-49); TOTAL PROTEIN 7.6 gm/dL (6.0-8.0); TRIGLYCERIDES 68 mg/dl (<150)
== END | disposition home or self-care (01) ==
LOC: US 03:39 → LAB 03:39 → US 09:30 → RAD 10:30
PROVIDERS: ATTEND Nurse Practitioner Primary Care
DX: K82.4 Cholesterolosis of gallbladder (principal); E78.00 Pure hypercholesterolemia, unspecified; E55.9 Vitamin D deficiency, unspecified; M85.80 Other specified disorders of bone density and structure, unspecified site; R74.8 Abnormal levels of other serum enzymes; K76.0 Fatty (change of) liver, not elsewhere classified; Z78.0 Asymptomatic menopausal state

== ENCOUNTER 2023-12-02 10:01 | Emergency (ER) | payer MEDICARE ==
[~2023-12-02] VITALS: Ht 170.1 cm; Wt 83.9 kg
[2023-12-02 10:27] LABS: BASO % 0.7 % (0.0-1.0); EOS # 0.1 10*3/uL (0.0-0.4); EOS % 1.7 % (1.0-4.0); HEMATOCRIT 40.8 % (37.0-47.0); LYMPH # 1.7 10*3/uL (1.3-4.4); LYMPH % 29.6 % (27.0-41.0); MEAN CELL VOLUME 95.6 fl (81.0-99.0); MEAN CORPUSCULAR HGB 31.4 pg (27.0-31.0); MEAN CORPUSCULAR HGB CONC 32.8 g/dl (33.0-37.0); MEAN PLATELET VOLUME 9.4 fl (9.6-12.3); MONO # 0.5 10*3/uL (0.1-1.0); MONO % 8.1 % (3.0-9.0); NEUT # 3.5 10*3/uL (2.3-7.9); NEUT % 59.7 % (47.0-73.0); PLATELET COUNT AUTOMATED 274 10*3/uL (130-400); RED BLOOD COUNT 4.27 10*6/uL (4.10-5.10); RED CELL DISTRI WIDTH 12.6 % (0-14.5); WHITE BLOOD COUNT 5.8 10*3/uL (4.8-10.8)
[2023-12-02 10:42] LABS: ACT PARTIAL THROMBO TIME 24.5 SECONDS (20.0-32.1)
[2023-12-02 10:47] LABS: ALKALINE PHOSPHATASE 78 U/L (46-116); BUN 7 mg/dl (9-23); CHLORIDE 106 mmol/L (98-107); LIPASE 47 U/L (12-53); POTASSIUM 3.7 mmol/L (3.4-5.1); SGPT/ALT 31 U/L (5-49); TOTAL PROTEIN 6.7 gm/dL (6.0-8.0)
== END 2023-12-02 13:21 | disposition home or self-care (01) ==
LOC: ED 10:01
PROVIDERS: Emergency Medicine
DX: R55 Syncope and collapse (principal); E11.9 Type 2 diabetes mellitus without complications; Z91.040 Latex allergy status; Z88.8 Allergy status to other drugs, medicaments and biological substances; Z98.51 Tubal ligation status; Z90.49 Acquired absence of other specified parts of digestive tract

== ENCOUNTER → 2025-01-03 | Outpatient (CLI) | payer MEDICARE | END | disposition home or self-care (01) | LOC: US 01:40 | PROVIDERS: ATTEND Nurse Practitioner Primary Care | DX: K76.0 Fatty (change of) liver, not elsewhere classified (principal); K82.4 Cholesterolosis of gallbladder ==